=== PATIENT | male | born 1940 | race Caucasian/White ===

== ENCOUNTER 2016-08-05 13:47 | Emergency (ER) | payer OTHER ==
[~2016-08-05] VITALS: Ht 177.8 cm; Wt 80.1 kg
[2016-08-05 14:06] VITALS: BP 166/87; PULSE 70; RESP 16; TEMP 98.4; O2SAT 95
[2016-08-05] MEDS ORDERED: RESP: ALBUTEROL 2.5 MG/3 ML NEB (SCH) INH ONE (15:15)
--- NOTE | 2016-08-05 15:22 | PD ---
HPI Chief Complaint: Cold / Flu Symptoms Time Seen by Provider: 15:19 Travel History International Travel<30 days: No Contact w/Intl Traveler<30days: No Traveled to known affect area: No History of Present Illness HPI Patient was in complaining of cough and chest congestion ongoing for 10 days. Patient is been using [id number] cold and flu medication that seems to help his symptoms. Patient's cough is dry and nonproductive. Denies any known fevers but has had hot and cold sweats. Denies any nausea, vomiting, headache, neck pain, chest pain, diarrhea, abdominal pain, or known sick contacts. Patient states he began having right-sided rib pain that began a few days ago after coughing. Denies any trauma. PFSH Past Medical History Cardiovascular Problems: Yes (HTN) Diabetes: Yes (TYPE II) Social History Alcohol Use: Yes Tobacco Use: No Substance Use: No Allergies-Medications (Allergen,Severity, Reaction): Coded Allergies: No Known Allergies (Unverified , 08/05/16) Reported Meds & Prescriptions Reported Meds & Active Scripts Active Zithromax Z-Luca (Azithromycin) 250 Mg Dspk 250 Mg PO DIRECTED 500 MG (2 tabs) day 1, then 1 tab days 2-5. Ventolin Hfa 18 GM Inh (Albuterol Sulfate) 90 Mcg/Act Aer 2 Puff INH Q4H PRN Reported Zocor (Simvastatin) 40 Mg Tab 40 Mg PO DAILY Metformin (Metformin HCl) 1,000 Mg Tab 1,000 Mg PO DAILY With a meal Lisinopril 20 Mg Tab 20 Mg PO DAILY Omeprazole 20 Mg Tab 20 Mg PO BID Metoprolol Succinate ER 24 HR (Metoprolol Succinate) 100 Mg Tab 100 Mg PO DAILY Diltiazem (Diltiazem HCl) 30 Mg Tab 30 Mg PO DAILY Allopurinol 300 Mg Tab 300 Mg PO DAILY Review of Systems Except as stated in HPI: all other systems reviewed are Neg Physical Exam Narrative GENERAL: Well-developed, well nourished, in no acute distress, and non-ill appearing. SKIN: Warm and dry. HEAD: Atraumatic. Normocephalic. EYES: Pupils equal and round. EOMI. No scleral icterus. No injection or drainage. ENT: No nasal bleeding or discharge. Mucous membranes pink and moist. Tympanic membranes pearly schmitz bilaterally. Posterior pharynx nonerythematous and without exudate. Uvula is midline. No tenderness to facial sinuses to palpation. NECK: Trachea midline. No cervical lymphadenopathy. Supple. No nuclear rigidity. CARDIOVASCULAR: Regular rate and rhythm. No murmur appreciated. RESPIRATORY: No accessory muscle use. No respiratory distress. Clear to auscultation. Breath sounds equal bilaterally. Tenderness to right lateral rib cage without crepitus or step-off. MUSCULOSKELETAL: No obvious deformities. No clubbing. No cyanosis. No edema. Full range of motion. NEUROLOGICAL: Awake and alert. No obvious cranial nerve deficits. Motor grossly within normal limits. Normal speech. PSYCHIATRIC: Appropriate mood and affect; insight and judgment normal. Data Data Last Documented VS Vital Signs Date Time Temp Pulse Resp B/P Pulse Ox O2 Delivery O2 Flow Rate FiO2 08/05/16 15:17 70 16 95 Room Air 08/05/16 14:06 98.4 166/87 Orders Chest, Pa & Lat (08/05/16 ) Albuterol Neb (Albuterol Neb) (08/05/16 15:15) MDM Medical Decision Making Medical Screen Exam Complete: Yes Emergency Medical Condition: Yes Differential Diagnosis Pneumonia, upper respiratory infection, influenza, bronchitis, other Narrative Course Patients symptom complex is consistent with bronchitis. The patient is non-ill appearing and is in no respiratory distress and comfortable. The patient moves air well and oxygen saturations are normal. Chest x-ray revealed no evidence of obvious consolidation of infiltrate. There is no clinical evidence to suggest pneumonia at this time. Plan of care and management were discussed with the patient who agreed with plan. The patient was instructed to follow up with their physician and instructed to return if worsens, progressively worsening shortness of breath or difficulty breathing, persistent fever, chest pains or discomfort, inability to keep medication or fluids down with or without vomiting , or as needed. Patient in no obvious distress upon re-evaluation. All pertinent Radiology result(s) discussed with patient/family. Patient was asked if they wanted to speak to my attending, which the patient did not wish to do at this time. Discussed patient with Dr. Aragon prior to discharge was in agreement with plan of care and disposition. Any questions/concerns in reference to patient diagnosis/condition discussed and clarified prior to patient's discharge. Reinforced sheer importance of close follow up with patient's primary physician or primary care clinic. Instructed patient to return to ED immediately, if symptoms return/worsen. Pt showed understanding of above instructions. Further instructions and recommendations were detailed in discharge paperwork. Pt ambulated without difficulty out of ED at discharge. Diagnosis Primary Impression: Bronchitis Patient Instructions: Acute Bronchitis (ED), General Instructions Additional Instructions: Follow-up with your primary care physician next week for reevaluation and for reevaluation of the small amount of trapped fluid noted on your chest x-ray today. Take all medication as prescribed. Return to the emergency department if symptoms get worse. Med/Other Pt SpecificInfo: Prescription(s) given Scripts Azithromycin (Zithromax Z-Luca)250 Mg [id number] Mg PO DIRECTED #1 DSPK Ref 0 500 MG (2 tabs) day 1, then 1 tab days 2-5. Prov:Iglesia Aragon MD 08/05/16 Albuterol 18 GM Inh (Ventolin Hfa 18 GM Inh)90 Mcg/Act Aer2 Puff INH Q4H PRN ( COUGH) #1 INHALER Ref 0 Prov:Iglesia Aragon MD 08/05/16 Disposition: 01 DISCHARGE HOME Condition: Stable [place] Aug 05, 2016 15:22
[2016-08-05] MEDS ORDERED: OMEP20TA PO (15:25)
[2016-08-05] MEDS ORDERED: DILT30TA PO (15:25)
[2016-08-05] MEDS ORDERED: ZOCO40TA PO (15:25)
[2016-08-05] MEDS ORDERED: METF1000 PO (15:25)
[2016-08-05] MEDS ORDERED: LISI-515 PO (15:25)
[2016-08-05] MEDS ORDERED: METO100T9 PO (15:25)
[2016-08-05] MEDS ORDERED: ALLO300T2 PO (15:25)
--- NOTE | 2016-08-05 15:37 | RADHPO ---
EXAM DATE/TIME: 08/05/2016 15:15 [facility] COMPARISON: No previous studies available for comparison. INDICATIONS: Cough and shortness of breath. MEDICAL HISTORY: Diabetes mellitus type II. SURGICAL HISTORY: None. ENCOUNTER: Initial ACUITY: 2 weeks PAIN SCORE: 0/10 LOCATION: Bilateral chest FINDINGS: The left lung is clear. There is elevation of the right diaphragm. I believe there is some fluid tr apped in the right minor fissure. Minimal parenchymal changes are seen in the right base. The heart is enlarged. Pulmonary vascularity is normal. CONCLUSION: 1. Elevation of the right hemidiaphragm. 2. Apparent trapped fluid in the right minor fissure. 3. Minimal parenchymal changes right base, could be an inflammatory process. Dick Jacob MD FACR on August 05, 2016 at 15:33 Board Certified Radiologist. This report was verified electronically.
[2016-08-05] MEDS ORDERED: VENTAER INH (16:00)
[2016-08-05] MEDS ORDERED: ZITHTAB PO (16:00)
== END 2016-08-05 16:16 | disposition home or self-care (01) ==
LOC: PHEFT 13:47
DX: J40 Bronchitis, not specified as acute or chronic (principal)
CPT/HCPCS: 71020; 94664; 99283; J7613